=== PATIENT | male | born 1950 | race Caucasian/White ===

== ENCOUNTER 2018-05-01 08:03 | Day surgery (SDC) | payer MEDICARE, MEDICAID ==
[~2018-05-01 08:03] MED LIST: PROPOFOL INJ 200 MG/20 ML VIAL IV ONE
[2018-05-01 10:38] VITALS: BP 123/65
--- NOTE | 2018-05-01 13:28 | Operative Report ---
Operative Report DATE OF SURGERY: 05/01/18 Operative Report: The risks, benefits and alternatives of the procedure including the risk of bleeding, perforation requiring surgery have been explained to the patient in detail and informed consent has been obtained. Patient is placed in a left, lateral decubital position. Timeout was called. Propofol medication is administered. Rectal examination is done which did not reveal any masses, tears or fissures. An Olympus videoscope was introduced into the patient's rectum. Scope was then carefully advanced all the way to the cecum. The cecum was identified by the usual anatomical landmarks including the ileocecal valve as well as the appendiceal office. Photodocumentation is obtained. Scope was then sequentially pulled back via the various segments of the colon including the ascending colon, hepatic flexure, transverse colon, splenic flexure, descending colon and finally into the rectosigmoid portions of the colon. Retroflexion maneuver was performed. PREOPERATIVE DIAGNOSIS: Colorectal cancer screening. GERD, dysphagia POSTOPERATIVE DIAGNOSIS: Colon polyp x2 noted in the rectum status post removal with biopsy forceps. Internal hemorrhoids. Gastritis status post biopsy rule out Helicobacter pylori. Esophagitis versus Crzu's status post biopsy. Breakage of the Schatzki's ring OPERATION: Colonoscopy with biopsy. EGD with biopsy SURGEON: ELFEGO SCHAFER ANESTHESIA: LMAC TISSUE REMOVED OR ALTERED: As noted above. COMPLICATIONS: None. ESTIMATED BLOOD LOSS: None. INTRAOPERATIVE FINDINGS: As noted above. PROCEDURE: Patient tolerated the procedure well. No immediate postprocedure complications are noted. Patient discharged in good condition. Discharge date 05/01/2018. Discharge diet: Regular. Discharge activity: Regular. 2-3-week follow-up to discuss findings. Patient is instructed to call the office or proceed to the emergency room should there be any further proximal questions. 5-year surveillance colonoscopy.
== END 2018-05-01 10:35 | disposition home or self-care (01) ==
LOC: END 08:03
PROVIDERS: ATTEND Internal Medicine Gastroenterology
DX: K21.0 Gastro-esophageal reflux disease with esophagitis (principal); K29.50 Unspecified chronic gastritis without bleeding; K22.2 Esophageal obstruction; K63.5 Polyp of colon; K64.8 Other hemorrhoids; K62.5 Hemorrhage of anus and rectum; Z79.899 Other long term (current) drug therapy; I11.9 Hypertensive heart disease without heart failure; G47.30 Sleep apnea, unspecified; E78.01 Familial hypercholesterolemia
CPT/HCPCS: 43239; 45380; 88342 ×2; 88305 ×2; J2704; 813

== ENCOUNTER 2018-06-26 07:02 | Day surgery (SDC) | payer MEDICARE, MEDICAID ==
[2018-06-26] MEDS ORDERED: PROPOFOL INJ 200 MG/20 ML VIAL IV ONE (07:32)
[2018-06-26 09:26] VITALS: BP 133/65
[2018-06-26] MEDS ORDERED: SIMETHICONE 80 MG TAB.CHEW ONE (09:37)
--- NOTE | 2018-06-26 13:08 | EKG REPORT ---
SEVERITY:- NORMAL ECG - SINUS RHYTHM : Confirmed by: Ezequiel Dukes MD 26-Jun-2018 13:07:18
--- NOTE | 2018-06-26 13:21 | Operative Report ---
Operative Report DATE OF SURGERY: 06/26/18 Operative Report: The risks benefits and alternatives of the procedure explained to the patient in detail and informed consent is obtained .A GIF Olympus video scope was inserted into the patient's mouth and hypopharynx, the esophagus is identified intubated and insufflated, the scope was then advanced through the esophagus stomach and duodenum, retroflexion maneuver is done, the esophagus stomach and first and second portions of the duodenum examined. PREOPERATIVE DIAGNOSIS: Cruz's esophagus POSTOPERATIVE DIAGNOSIS: Schatzki's ring status post biopsy to break. Cruz's esophagus status post radiofrequency ablation OPERATION: EGD with radiofrequency ablation; followed by biopsy SURGEON: ELFEGO SCHAFER ANESTHESIA: LMAC TISSUE REMOVED OR ALTERED: As noted above. COMPLICATIONS: None. ESTIMATED BLOOD LOSS: None. INTRAOPERATIVE FINDINGS: As noted above. PROCEDURE: Patient tolerated the procedure well. No immediate postprocedure complications are noted. Patient is discharged in good condition. Discharge date 06/26/2018. Discharge diet: Regular. Discharge activity: Regular. 2 to 3-week follow-up to discuss findings. Patient is instructed to call the office or proceed to the emergency room should there be any further proximal questions. Wait on the pathology.
== END 2018-06-26 09:58 | disposition home or self-care (01) ==
LOC: END 07:02
PROVIDERS: ATTEND Internal Medicine Gastroenterology
DX: K22.719 Barrett's esophagus with dysplasia, unspecified (principal); K22.2 Esophageal obstruction; J45.909 Unspecified asthma, uncomplicated; R06.02 Shortness of breath; G47.33 Obstructive sleep apnea (adult) (pediatric); E66.9 Obesity, unspecified; I11.9 Hypertensive heart disease without heart failure; E78.01 Familial hypercholesterolemia; Z68.35 Body mass index [BMI] 35.0-35.9, adult; Z79.899 Other long term (current) drug therapy
CPT/HCPCS: 43270; 43239; 93005; 93010; A9270; J2704

== ENCOUNTER 2018-08-21 10:12 | Day surgery (SDC) | payer MEDICARE, MEDICAID ==
--- NOTE | 2018-08-21 11:40 | Operative Report ---
Operative Report DATE OF SURGERY: 08/21/18 Operative Report: The risks benefits and alternatives of the procedure explained to the patient in detail and informed consent is obtained.A GIF Olympus video scope was inserted into the patient's mouth and hypopharynx ,the esophagus is identified intubated and insufflated, the scope was then advanced through the esophagus stomach and duodenum ,retroflexion maneuver is done, the esophagus stomach and first and second portions of the duodenum examined. PREOPERATIVE DIAGNOSIS: Dysphagia, history of Cruz's. Patient has a history of previous foreign body ingestion POSTOPERATIVE DIAGNOSIS: Distal esophagitis status post biopsy. Gastritis status post biopsy. No evidence of Cruz's esophagus he is status post radiofrequency ablation in the past OPERATION: EGD with biopsy SURGEON: ELFEGO SCHAFER ANESTHESIA: LMAC TISSUE REMOVED OR ALTERED: As noted above. COMPLICATIONS: None. ESTIMATED BLOOD LOSS: None. INTRAOPERATIVE FINDINGS: As noted above. PROCEDURE: Patient tolerated the procedure well. No immediate postprocedure complications are noted. Patient is discharged in good condition. Discharge date 08/21/2018. Discharge diet: Regular. Discharge activity: Regular. 2 to 3-week follow-up to discuss findings. Patient is instructed to call the office or proceed to the emergency room should there be any further problems or questions.
[2018-08-21 11:42] VITALS: BP 125/65
== END 2018-08-21 11:44 | disposition home or self-care (01) ==
LOC: END 10:12
PROVIDERS: ATTEND Internal Medicine Gastroenterology
DX: K29.50 Unspecified chronic gastritis without bleeding (principal); B96.81 Helicobacter pylori [H. pylori] as the cause of diseases classified elsewhere; K21.0 Gastro-esophageal reflux disease with esophagitis; Z87.19 Personal history of other diseases of the digestive system; Z09 Encounter for follow-up examination after completed treatment for conditions other than malignant neoplasm; I10 Essential (primary) hypertension; Z13.89 Encounter for screening for other disorder; Z79.899 Other long term (current) drug therapy; Z91.013 Allergy to seafood
CPT/HCPCS: 43239; 88305 ×2; J2704; 731